=== PATIENT | male | born 2000 | race Hispanic/Latino ===

== ENCOUNTER 2021-01-24 20:52 | Emergency (ER) | payer OTHER ==
[2021-01-24] MEDS ORDERED: NA CHLORIDE 0.9% 1,000 ML ONE ×2 (21:19→22:35)
[2021-01-24] MEDS ORDERED: ONDANSETRON 4 MG/2 ML VIAL ONE (21:19)
[2021-01-24 21:22] LABS: Urine Blood Negative (Negative); Urine Glucose Negative (Negative); Urine Protein Negative (Negative); Urine Specific Gravity 1.025 (1.005-1.030)
[2021-01-24 21:23] LABS: Basophils % 0.6 % (0-1.3); Hematocrit 43.8 % (39.6-49.0); Lymphocytes % 34.9 % (15.3-44.8); MPV 9.4 fL (7.6-11.3); RBC Red Blood Cell Count 4.83 M/uL (4.33-5.43)
[2021-01-24 21:24] LABS: Absolute Lymphocytes (CBC) 2.7 K/uL (0.7-4.9)
[2021-01-24 21:28] LABS: Protime INR 1.11
--- NOTE | 2021-01-24 21:28 | RAD REPORT ---
EXAM DESCRIPTION: CT - Head Brain Wo Cont - 01/24/2021 9:18 pm CLINICAL HISTORY: Alteration of awareness/confusion/seizure COMPARISON: None TECHNIQUE: Computed axial tomography of the head was obtained. IV contrast was not requested. All CT scans are performed using dose optimization technique as appropriate and may include automated exposure control or mA/KV adjustment according to patient size. FINDINGS: An intracranial bleed is not seen . The ventricles are normal in caliber. No extra-axial fluid collection is noted. Fluid within the sinuses/ mastoids is not seen. IMPRESSION: No acute intracranial abnormality is seen. If patient's symptoms persist MRI of the bra in would be recommended.
[2021-01-24 21:41] LABS: Barbiturates NEGATIVE (NEGATIVE); Benzodiazepines NEGATIVE (NEGATIVE); Cocaine NEGATIVE (NEGATIVE); METHAMPHETAM NEGATIVE (NEGATIVE); Methadone NEGATIVE (NEGATIVE); Opiates NEGATIVE (NEGATIVE); Phencyclidine NEGATIVE (NEGATIVE); THC Cannibis NEGATIVE (NEGATIVE)
--- NOTE | 2021-01-24 21:48 | RAD REPORT ---
EXAM DESCRIPTION: [place] Single View01/24/2021 9:42 pm CLINICAL HISTORY: Fever COMPARISON: none FINDINGS: The lungs appear clear of acute infiltrate. The heart is normal size IMPRESSION: No acute abnormalities displayed
[2021-01-24 22:12] LABS: ALT/SGPT 26 U/L (12-78); AST/SGOT 23 U/L (15-37); Albumin 4.5 g/dL (3.4-5.0); Alkaline Phosphatase 63 U/L (45-117); BUN Blood Urea Nitrogen 15 mg/dL (7-18); Bicarbonate 25 mmol/L (21-32); Bilirubin Direct 0.2 mg/dL (0-0.2); Bilirubin Total 0.6 mg/dL (0.2-1.0); Glucose Level 104 mg/dL (74-106); Potassium 3.5 mmol/L (3.5-5.1); Protein, Total 8.1 g/dL (6.4-8.2); Sodium Level 140 mmol/L (136-145)
--- NOTE | 2021-01-25 01:23 | ER ---
Nurse's Notes [facility] Name: Jeff De Dios Age: 20 yrs Sex: Male : 2000 Arrival Date: 01/24/2021 Time: 20:53 Bed 14 Private MD: Diagnosis: Altered mental status. Possible seizure Presentation: 01/24 21:01 Chief complaint: EMS states: toned out for AMS/seizure like activity. Pt arrived by EMS ld1 from [facility]. Coronavirus screen: At this time, the client does not indicate any symptoms associated with coronavirus-19. Ebola Screen: No symptoms or risks identified at this time. Initial Sepsis Screen: Does the patient meet any 2 criteria? No. Patient's initial sepsis screen is negative. Does the patient have a suspected source of infection? No. Patient's initial sepsis screen is negative. Risk Assessment: Do you want to hurt yourself or someone else? Patient reports no desire to harm self or others. 21:01 [facility]01 Acuity: GRETCHEN 3 ld1 Triage Assessment: 21:03 General: Appears in no apparent distress. uncomfortable, Behavior is unresponsive. ld1 Pain: Unable to use pain scale. Patient is unresponsive. EENT: No signs and/or symptoms were reported regarding the EENT system. Neuro: Level of Consciousness is unresponsive. Cardiovascular: Capillary refill < 3 seconds Rhythm is sinus rhythm. Respiratory: Airway is patent Respiratory effort is even, unlabored, Respiratory pattern is regular, symmetrical. GI: Abdomen is flat, non-distended. : No signs and/or symptoms were reported regarding the genitourinary system. Derm: No signs and/or symptoms reported regarding the dermatologic system. Musculoskeletal: No signs and/or symptoms reported regarding the musculoskeletal system. Historical: - Allergies: 21:03 Unable to obtain; ld1 - Immunization history:: Adult Immunizations unknown. - Social history:: Smoking status: unknown. Screenin:00 Abuse screen: Denies threats or abuse. Nutritional screening: No deficits noted. jb4 Tuberculosis screening: No symptoms or risk factors identified. 21:00 Fall Risk None identified. jb4 Assessment: 21:00 General: Appears in no apparent distress. uncomfortable, ill, Behavior is unresponsive. jb4 Pain: Unable to use pain scale. Patient is unresponsive. Neuro: Level of Consciousness is awake, alert, obeys commands, Oriented to person, place, time, situation. Cardiovascular: Patient's skin is warm and dry. Respiratory: Airway is patent Respiratory effort is even, unlabored, Respiratory pattern is regular, symmetrical. GI: No signs and/or symptoms were reported involving the gastrointestinal system. : No signs and/or symptoms were reported regarding the genitourinary system. EENT: No signs and/or symptoms were reported regarding the EENT system. Derm: Skin is intact, Skin is pink, warm \T\ dry. Musculoskeletal: Circulation, motion, and sensation intact. Range of motion: intact in all extremities. 22:00 Reassessment: Patient appears in no apparent distress at this time. No changes from jb4 previously documented assessment. Patient and/or family updated on plan of care and expected duration. Pain level reassessed. 23:15 Reassessment: Patient appears in no apparent distress at this time. Patient and/or jb4 family updated on plan of care and expected duration. Pain level reassessed. Patient is alert, oriented x 3, equal unlabored respirations, skin warm/dry/pink. Pt is now awake and talking. Is pleasant with staff. Requesting water. Provider okayed pt to have water. 01/25 01:08 Reassessment: Patient appears in no apparent distress at this time. Patient and/or jb4 family updated on plan of care and expected duration. Pain level reassessed. Patient is alert, oriented x 3, equal unlabored respirations, skin warm/dry/pink. 01:51 Reassessment: Patient appears in no apparent distress at this time. Patient and/or jb4 family updated on plan of care and expected duration. Pain level reassessed. Patient is alert, oriented x 3, equal unlabored respirations, skin warm/dry/pink. Vital Signs: 01/24 21:00 BP 160 / 80; Pulse 86; Resp 16; Pulse Ox 98% on R/A; jb4 21:01 BP 141 / 82; Pulse 101; Resp 20; Temp 100.0(TE); Pulse Ox 97% on R/A; Weight 73.48 kg; ld1 Height 5 ft. 7 in. (170.18 cm); 22:00 BP 128 / 78; Pulse 84; Resp 18; Pulse Ox 98% on R/A; jb4 23:00 BP 136 / 62; Pulse 91; Resp 16; Pulse Ox 98% on R/A; jb4 01/25 01:00 BP 120 / 75; Pulse 62; Resp 16; Pulse Ox 98% on R/A; jb4 01/24 21:01 Body Mass Index 25.37 (73.48 kg, 170.18 cm) ld1 ED Course: 01/24 20:53 Patient arrived in ED. em1 21:00 Angelique Espinoza, JOSE DE JESUS is Primary Nurse. ld1 21:00 Patient has correct armband on for positive identification. Bed in low position. Call jb4 light in reach. Side rails up X 1. Pulse ox on. NIBP on. 21:01 Cody Álvarez FNP-C is PHCP. la1 21:01 Larry Zee MD is Attending Physician. pkl 21:03 Triage completed. ld1 21:03 Arm band placed on right wrist. ld1 21:17 CT Head Brain wo Cont In Process Unspecified. EDMS 21:42 XRAY CXR (1 view) In Process Unspecified. EDMS 01/25 01:52 No provider procedures requiring assistance completed. IV discontinued, intact, jb4 bleeding controlled, No redness/swelling at site. Pressure dressing applied. Administered Medications: 01/24 21:05 Drug: Zofran (Ondansetron) 4 mg Route: IVP; Site: right antecubital; ld1 21:30 Follow up: Response: No adverse reaction; Marked relief of symptoms jb4 21:06 Drug: NS 0.9% 1000 ml Route: IV; Rate: 1000 ml; Site: right antecubital; ld1 22:00 Follow up: Response: No adverse reaction; IV Status: Completed infusion; IV Intake: jb4 1000ml 23:03 Drug: NS 0.9% 1000 ml Route: IV; Rate: 125 ml/hr; Site: right antecubital; jb4 01/25 01:50 Follow up: Response: No adverse reaction; IV Status: Order to discontinue infusion jb4 Intake: 01/24 22:00 IV: 1000ml; Total: 1000ml. jb4 Outcome: 01/25 01:23 Discharge ordered by . pkl 01:52 Discharged to Law Enforcement jb4 01:52 Condition: stable 01:52 Discharge instructions given to patient, police, Instructed on discharge instructions, follow up and referral plans. Demonstrated understanding of instructions, follow-up care. 01:53 Patient left the ED. jb4 Signatures: Dispatcher [employer] Larry Melendez MD MD pkl Martinez, Eric em1 Cody Álvarez, WASTE MACHINE OPERATOR-C WASTE MACHINE OPERATOR-Cla1 Mark Guerra RN RN jb4 Angelique Espinoza RN RN ld1
--- NOTE | 2021-01-25 01:23 | EDPHYS ---
Physician Documentation [facility] Name: Jeff De Dios Age: 20 yrs Sex: Male : 2000 Arrival Date: 01/24/2021 Time: 20:53 Bed 14 Private MD: ED Physician Larry Zee HPI: 01/24 21:07 This 20 yrs old Male presents to ER via EMS with unknown complaint. pkl 21:07 The patient presents with decreased mental status, seizure activity. Onset: The pkl symptoms/episode began/occurred just prior to arrival. Possible causes: unknown. Associated signs and symptoms: Pertinent positives: nausea, vomiting. Historical: - Allergies: 21:03 Unable to obtain; ld1 - Immunization history:: Adult Immunizations unknown. - Social history:: Smoking status: unknown. ROS: 21:07 Eyes: Negative for injury, pain, redness, and discharge, ENT: Negative for injury, pkl pain, and discharge, Neck: Negative for injury, pain, and swelling, Cardiovascular: Negative for chest pain, palpitations, and edema, Respiratory: Negative for shortness of breath, cough, wheezing, and pleuritic chest pain. 21:07 Abdomen/GI: Positive for nausea, vomiting. 21:07 Back: Negative for acute changes. 21:07 : Negative for urinary symptoms. 21:07 MS/extremity: Negative for acute changes. 21:07 Skin: Negative for rash. 21:07 Neuro: Positive for altered mental status, seizure activity. Exam: 21:07 Head/Face: Normocephalic, atraumatic. Eyes: Pupils equal round and reactive to light, pkl extra-ocular motions intact. Lids and lashes normal. Conjunctiva and sclera are non-icteric and not injected. Cornea within normal limits. Periorbital areas with no swelling, redness, or edema. ENT: Nares patent. No nasal discharge, no septal abnormalities noted. Tympanic membranes are normal and external auditory canals are clear. Oropharynx with no redness, swelling, or masses, exudates, or evidence of obstruction, uvula midline. Mucous membranes moist. Neck: Trachea midline, no thyromegaly or masses palpated, and no cervical lymphadenopathy. Supple, full range of motion without nuchal rigidity, or vertebral point tenderness. No Meningismus. Chest/axilla: Normal chest wall appearance and motion. Nontender with no deformity. No lesions are appreciated. Cardiovascular: Regular rate and rhythm with a normal S1 and S2. No gallops, murmurs, or rubs. Normal PMI, no JVD. No pulse deficits. Respiratory: Lungs have equal breath sounds bilaterally, clear to auscultation and percussion. No rales, rhonchi or wheezes noted. No increased work of breathing, no retractions or nasal flaring. Abdomen/GI: Soft, non-tender, with normal bowel sounds. No distension or tympany. No guarding or rebound. No evidence of tenderness throughout. Back: No spinal tenderness. No costovertebral tenderness. Full range of motion. Skin: Warm, dry with normal turgor. Normal color with no rashes, no lesions, and no evidence of cellulitis. MS/ Extremity: Pulses equal, no cyanosis. Neurovascular intact. Full, normal range of motion. 21:07 Neuro: Orientation: unable to test, the patient is post-ictal, Cranial nerves: unable to test, the patient is post-ictal, Motor: moves all fours. Vital Signs: 21:00 BP 160 / 80; Pulse 86; Resp 16; Pulse Ox 98% on R/A; jb4 21:01 BP 141 / 82; Pulse 101; Resp 20; Temp 100.0(TE); Pulse Ox 97% on R/A; Weight 73.48 kg; ld1 Height 5 ft. 7 in. (170.18 cm); 22:00 BP 128 / 78; Pulse 84; Resp 18; Pulse Ox 98% on R/A; jb4 23:00 BP 136 / 62; Pulse 91; Resp 16; Pulse Ox 98% on R/A; jb4 01/25 01:00 BP 120 / 75; Pulse 62; Resp 16; Pulse Ox 98% on R/A; jb4 01/24 21:01 Body Mass Index 25.37 (73.48 kg, 170.18 cm) ld1 MDM: 01/24 21:01 Patient medically screened. pk 01/25 01:20 Data reviewed: vital signs, nurses notes, lab test result(s), EKG, radiologic studies, pkl CT scan. ED course: Patient feeling better. Alert. Not in any distress. 01/24 21:02 Order name: Acetaminophen pkl 01/24 21:02 Order name: Basic Metabolic Panel; Complete Time: 22:20 pkl 01/24 21:02 Order name: CBC with Diff; Complete Time: 22:20 pkl 01/24 21:02 Order name: ETOH Level; Complete Time: 22:20 pkl 01/24 21:02 Order name: Hepatic Function; Complete Time: 22:20 pkl 01/24 21:02 Order name: PT-INR; Complete Time: 22:20 pk 01/24 21:02 Order name: Ptt, Activated; Complete Time: 22:20 pkl 01/24 21:02 Order name: Salicylate; Complete Time: 22:20 pkl 01/24 21:02 Order name: Urine Drug Screen; Complete Time: 22:20 pk 01/24 21:02 Order name: Acetaminophen Level; Complete Time: 22:20 EDMS 01/24 21:04 Order name: Blood Culture Adult (2) pk 01/24 21:04 Order name: Lactate pk 01/24 21:05 Order name: Blood Culture EDIL 01/24 21:02 Order name: EKG; Complete Time: 21:03 pk 01/24 21:02 Order name: EKG - Nurse/Tech; Complete Time: 22:31 pk 01/24 21:02 Order name: IV Saline Lock; Complete Time: 21:06 pk 01/24 21:02 Order name: Labs collected and sent; Complete Time: 21:10 pk 01/24 21:02 Order name: Urine Dipstick-Ancillary (obtain specimen); Complete Time: 21:06 pk 01/24 21:03 Order name: CT Head Brain wo Cont; Complete Time: 22:20 pk 01/24 21:05 Order name: XRAY CXR (1 view); Complete Time: 22:20 pk 01/24 21:05 Order name: Lactate; Complete Time: 22:20 EDMS 01/24 21:22 Order name: Urine Dipstick-Ancillary; Complete Time: 22:20 EDMS 01/25 01:20 Order name: SARS-COV-2 RT PCR; Complete Time: 01:23 EDMS Administered Medications: 01/24 21:05 Drug: Zofran (Ondansetron) 4 mg Route: IVP; Site: right antecubital; ld1 21:30 Follow up: Response: No adverse reaction; Marked relief of symptoms jb4 21:06 Drug: NS 0.9% 1000 ml Route: IV; Rate: 1000 ml; Site: right antecubital; ld1 22:00 Follow up: Response: No adverse reaction; IV Status: Completed infusion; IV Intake: jb4 1000ml 23:03 Drug: NS 0.9% 1000 ml Route: IV; Rate: 125 ml/hr; Site: right antecubital; jb4 01/25 01:50 Follow up: Response: No adverse reaction; IV Status: Order to discontinue infusion jb4 Disposition Summary: 01/25/21 01:23 Discharge Ordered Location: Home pkl Problem: new pkl Symptoms: have improved pkl Condition: Stable pkl Diagnosis - Altered mental status. Possible seizure pkl Followup: pkl - With: Private Physician - When: 1 - 2 days - Reason: Re-evaluation by your physician Forms: - Medication Reconciliation Form pkl - Thank You Letter pkl - Antibiotic Education pkl - Prescription Opioid Use pkl Signatures: Dispatcher [employer] EDMS Larry Zee MD MD pkl Mark Guerra, RN RN jb4 Angelique Espinoza RN RN ld1 Corrections: (The following items were deleted from the chart) 01/24 21:07 21:02 Suicide Screening ([place]) ordered. pkl [facility] 01/25 00:26 01/24 22:33 CORONAVIRUS+BRZ ordered. EDIL EDMS
[2021-01-25 03:49] VITALS: TEMP 100
[2021-01-25 03:51] VITALS: O2SAT 98
[2021-01-25 03:55] VITALS: BP 120/75
== END 2021-01-25 01:53 | disposition home or self-care (01) ==
LOC: ER 20:52
DX: R41.82 Altered mental status, unspecified (principal); Z20.822 Contact with and (suspected) exposure to COVID-19
CPT/HCPCS: 96361; 93005; 87040 ×2; 85025; 80048; 36415; 80320; 80329 ×2; 85610; 80076; 83605; 85730; 81003; 80307; 70450; 71045; 96374; 99284; U0003; J2405; J7030